=== PATIENT | female | born 1995 | race Caucasian/White ===

== ENCOUNTER 2020-12-08 22:11 | Emergency (ER) | payer MEDICAID, OTHER ==
[~2020-12-08] VITALS: Ht 160 cm; Wt 82.0 kg
[2020-12-08 22:28] VITALS: BP 140/84
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
--- NOTE | 2020-12-08 22:49 | NUR ---
PT PROVIDED WITH SOCKS AND FOOD PER REQUEST. DENIES ANY FURTHER NEEDS AT THIS TIME.
[2020-12-08] MEDS ORDERED: PERMETHRIN CRM 5%, 60GM ONE (23:17)
== END 2020-12-08 23:22 | disposition home or self-care (01) ==
LOC: EDBD 22:11 → ED 22:54
DX: R45.851 Suicidal ideations (principal); F32.9 Major depressive disorder, single episode, unspecified
CPT/HCPCS: 99285